=== PATIENT | male | born 1965 | race Caucasian/White ===

== ENCOUNTER 2019-10-01 20:17 | Inpatient (IN) | payer MEDICARE, MEDICAID ==
[~2019-10-01] VITALS: Ht 172.7 cm; Wt 84.1 kg
[~2019-10-01 20:17] MED LIST: CELE-193 PO; METH5TAB PO; ONDA8TAB6 PO; VAL2T PO
[2019-10-01] MEDS ORDERED: morphine 4 MG/ML inj SYRINge IM ONE (20:40)
[2019-10-01] MEDS ORDERED: ondansetron 4mg rapidly disintigrating tab PO ONE (20:40)
--- NOTE | 2019-10-01 20:42 | NUR ---
Pt. transported to CT by tech at this time.
[2019-10-01 20:58] LABS: BASOPHILS # (AUTO) 0.1 X10'3 (0-0.2); BASOPHILS % (AUTO) 0.8 % (0-1); EOSINOPHILS # (AUTO) 0.4 X10'3 (0-0.9); EOSINOPHILS % (AUTO) 4.3 % (0-6); HEMATOCRIT 41.8 % (42.0-52.0); HEMOGLOBIN 14.4 g/dl (14.0-17.9); LYMPHOCYTES # (AUTO) 1.5 X10'3 (1.1-4.8); LYMPHOCYTES % (AUTO) 17.4 % (21-51); MEAN CORPUSCULAR HEMOGLOBIN 32.4 PG (27.0-31.0); MEAN CORPUSCULAR HGB CONC 34.5 g/dL (33.0-36.5); MEAN CORPUSCULAR VOLUME 93.9 FL (78-98); MONOCYTES # (AUTO) 0.8 X10'3 (0-0.9); MONOCYTES % (AUTO) 9.4 % (2-12); NEUTROPHILS # (AUTO) 5.8 X10'3 (1.8-7.7); NEUTROPHILS % (AUTO) 68.1 % (42-75); PLATELET COUNT 204 X10'3 (140-440); RED BLOOD COUNT 4.45 X10'6 (4.70-6.10); RED CELL DISTRIBUTION WIDTH 13.1 % (11.5-14.5); WHITE BLOOD COUNT 8.5 X10'3 (4.5-11.0)
[2019-10-01] MEDS ORDERED: ondansetron/PF 4mg/2ml inj IV ONE (21:15)
[2019-10-01] MEDS ORDERED: normal saline 1000ML IV soln IVB ONE (21:15)
[2019-10-01] MEDS ORDERED: ceFOXitin 1 GM/D5W 50mL IVPB 50 ML IV ONE (21:15)
[2019-10-01 21:25] LABS: ALANINE AMINOTRANSFERASE 589 U/L (12-78); ALBUMIN 3.3 G/DL (3.4-5.0); ALKALINE PHOSPHATASE 468 IU/L (46-116); ANION GAP 9 (8-16); ASPARTATE AMINO TRANSFERASE 340 U/L (10-37); BILIRUBIN,TOTAL 5.3 MG/DL (0.1-1.0); BLOOD UREA NITROGEN 10 MG/DL (7-18); BUN/CREATININE RATIO 9.5 (5.4-32.0); CALCIUM 9.5 MG/DL (8.5-10.1); CHLORIDE 102 MMOL/L (99-107); CREATININE 1.05 MG/DL (0.60-1.10); GLUCOSE 117 MG/DL (70-104); LIPASE 172 U/L (73-393); POTASSIUM 3.7 MMOL/L (3.5-5.1); SODIUM 137 MMOL/L (135-145); TOTAL CARBON DIOXIDE 26.4 MMOL/L (24-32); eGFR 73 ML/MIN
[2019-10-01 21:27] LABS: ALBUMIN/GLOBULIN RATIO 0.7 (1.1-1.5); TOTAL PROTEIN 7.8 G/DL (6.4-8.2)
[2019-10-01] MEDS: morphine 4 MG/ML inj SYRINge IV PRN ×2 (21:33→21:58)
[2019-10-01 21:34] LABS: CLARITY,URINE CLEAR (Clear); COLOR,URINE AMBER (Yellow); GLUCOSE, URINE NEGATIVE (Neg); KETONES,URINE TRACE mg/dl (Neg); LEUKOCYTE ESTERASE ,URINE NEGATIVE (Neg); NITRITES, URINE NEGATIVE (Neg); OCCULT BLOOD,URINE SMALL (Neg); PROTEIN,URINE NEGATIVE (Neg)
[2019-10-01 21:46] LABS: UA COLLECTION TYPE VOIDED
[2019-10-01 21:49] LABS: URINE AMPHETAMINE SCREEN POSITIVE (Neg); URINE BARBITUATE SCREEN NEGATIVE (Neg); URINE BENZODIAZEPINES SCREEN NEGATIVE (Neg); URINE CANNABINOID SCREEN POSITIVE (Neg); URINE COCAINE SCREEN NEGATIVE (Neg); URINE METHADONE SCREEN POSITIVE (Neg); URINE OPIATE SCREEN NEGATIVE (Neg); URINE PHENCYCLIDINE SCREEN NEGATIVE (Neg)
[2019-10-01 21:51] LABS: BACTERIA,URINE NONE SEEN /HPF (Neg); MUCUS STRANDS FEW /LPF (Neg); RBC,URINE 0-2 /HPF (0-2); SQUAMOUS EPITHELIAL CELL,UR FEW /LPF (FEW); WBC,URINE 0-4 /HPF (0-4)
[2019-10-01] MEDS ORDERED: nicotine 21mg patch - 24 hr TD ONE (22:40)
[2019-10-02] MEDS ORDERED: potassium Cl 20 mEq SR tablet PO PRN ×2 (00:20)
[2019-10-02] MEDS ORDERED: magnesium 4gm in 100ml NS 100 ML IV PRN (00:20)
[2019-10-02] MEDS ORDERED: magnesium 2GM in 50ml NS 50 ML IV PRN (00:20)
[2019-10-02] MEDS ORDERED: potassium CL 10mEq/100ml bag 100 ML IV PRN ×2 (00:20)
[2019-10-02] MEDS ORDERED: ondansetron/PF 4mg/2ml inj IV PRN (00:20)
[2019-10-02] MEDS ORDERED: magnesium Cl slow-release 64mg tablet PO PRN (00:20)
[2019-10-02 00:41] LABS: ETHANOL < 0.010 GM/DL (0.0-0.010)
[2019-10-02] MEDS: normal saline 1000ml 1,000 ML IV SCH ×3 (00:57→20:50)
[2019-10-02] MEDS: morphine 2 MG/ML inj. syringe IV PRN ×5 (02:33→22:00)
[2019-10-02 02:48] VITALS: BP 151/73
[2019-10-02] MEDS ORDERED: IBUP-1986 PO (03:04)
--- NOTE | 2019-10-02 06:20 | NUR ---
Problems reprioritized. Patient report given, questions answered & plan of care reviewed with BENJA Shaw. Addendum: 10/02/19 at 0621 by Kary Womack RN Amended: Links added.
--- NOTE | 2019-10-02 06:20 | NUR ---
Problems reprioritized. Patient report given, questions answered & plan of care reviewed with BENJA Shaw. Addendum: 10/02/19 at 0620 by Kary Womack RN Amended: Links added.
[2019-10-02] MEDS: pantoprazole 40 MG vial IV SCH (07:19)
[2019-10-02] MEDS: metroNIDAZOLE-Flagyl 500mg/NS 100 ML IV SCH ×2 (07:19→15:21)
[2019-10-02] MEDS: K and/or MAG REPLACEMENT MC SCH (08:00)
[2019-10-02] MEDS: levoFLOXACIN-Levaquin 500mg/D5 100 ML IV SCH (09:20)
--- NOTE | 2019-10-02 10:20 | NUR ---
PAGER ID: [phone] MESSAGE: [id number] Echo needs a reason other than METH use. Valeria [phone]
[2019-10-02 11:00] VITALS: BP 166/95
[2019-10-02 14:16] LABS: BASOPHILS # (AUTO) 0.1 X10'3 (0-0.2); BASOPHILS % (AUTO) 0.9 % (0-1); EOSINOPHILS # (AUTO) 0.3 X10'3 (0-0.9); HEMATOCRIT 39.5 % (42.0-52.0); HEMOGLOBIN 13.3 g/dl (14.0-17.9); LYMPHOCYTES # (AUTO) 1.7 X10'3 (1.1-4.8); LYMPHOCYTES % (AUTO) 18.1 % (21-51); MEAN CORPUSCULAR HEMOGLOBIN 31.6 PG (27.0-31.0); MEAN CORPUSCULAR HGB CONC 33.6 g/dL (33.0-36.5); MEAN CORPUSCULAR VOLUME 94.1 FL (78-98); MEAN PLATELET VOLUME 9.4 FL (7.4-10.4); MONOCYTES # (AUTO) 0.9 X10'3 (0-0.9); MONOCYTES % (AUTO) 9.7 % (2-12); NEUTROPHILS # (AUTO) 6.3 X10'3 (1.8-7.7); NEUTROPHILS % (AUTO) 68.3 % (42-75); PLATELET COUNT 181 X10'3 (140-440); RED CELL DISTRIBUTION WIDTH 13.4 % (11.5-14.5); WHITE BLOOD COUNT 9.2 X10'3 (4.5-11.0)
[2019-10-02 14:30] LABS: ALANINE AMINOTRANSFERASE 413 U/L (12-78); ALBUMIN 2.9 G/DL (3.4-5.0); ALBUMIN/GLOBULIN RATIO 0.7 (1.1-1.5); ALKALINE PHOSPHATASE 419 IU/L (46-116); ANION GAP 7 (8-16); ASPARTATE AMINO TRANSFERASE 172 U/L (10-37); BILIRUBIN,TOTAL 1.4 MG/DL (0.1-1.0); BLOOD UREA NITROGEN 8 MG/DL (7-18); BUN/CREATININE RATIO 8.2 (5.4-32.0); CALCIUM 8.8 MG/DL (8.5-10.1); CHLORIDE 104 MMOL/L (99-107); CREATININE 0.98 MG/DL (0.60-1.10); GLUCOSE 76 MG/DL (70-104); POTASSIUM 4.1 MMOL/L (3.5-5.1); SODIUM 137 MMOL/L (135-145); TOTAL CARBON DIOXIDE 26.5 MMOL/L (24-32); TOTAL PROTEIN 7.2 G/DL (6.4-8.2); eGFR 79 ML/MIN
--- NOTE | 2019-10-02 18:49 | NUR ---
Patient in room [facility]. I have received report from BENJA Shaw and had the opportunity to ask questions and assume patient care.
[2019-10-02 19:53] VITALS: BP 125/72
[2019-10-03] VITALS: BP 133/72
[2019-10-03] MEDS: metroNIDAZOLE-Flagyl 500mg/NS 100 ML IV SCH ×2 (00:13→07:54)
[2019-10-03] MEDS: morphine 2 MG/ML inj. syringe IV PRN ×2 (03:04→07:55)
[2019-10-03 04:59] LABS: BASOPHILS # (AUTO) 0.1 X10'3 (0-0.2); BASOPHILS % (AUTO) 0.9 % (0-1); EOSINOPHILS # (AUTO) 0.2 X10'3 (0-0.9); EOSINOPHILS % (AUTO) 2.1 % (0-6); HEMATOCRIT 36.2 % (42.0-52.0); HEMOGLOBIN 12.3 g/dl (14.0-17.9); LYMPHOCYTES # (AUTO) 1.7 X10'3 (1.1-4.8); LYMPHOCYTES % (AUTO) 18.3 % (21-51); MEAN CORPUSCULAR VOLUME 94.2 FL (78-98); MEAN PLATELET VOLUME 9.3 FL (7.4-10.4); MONOCYTES # (AUTO) 0.9 X10'3 (0-0.9); MONOCYTES % (AUTO) 9.7 % (2-12); NEUTROPHILS # (AUTO) 6.5 X10'3 (1.8-7.7); PLATELET COUNT 171 X10'3 (140-440); RED BLOOD COUNT 3.85 X10'6 (4.70-6.10); RED CELL DISTRIBUTION WIDTH 13.3 % (11.5-14.5); WHITE BLOOD COUNT 9.4 X10'3 (4.5-11.0)
[2019-10-03 05:20] LABS: ALANINE AMINOTRANSFERASE 292 U/L (12-78); ALBUMIN 2.7 G/DL (3.4-5.0); ALBUMIN/GLOBULIN RATIO 0.7 (1.1-1.5); ALKALINE PHOSPHATASE 353 IU/L (46-116); ANION GAP 9 (8-16); ASPARTATE AMINO TRANSFERASE 89 U/L (10-37); BLOOD UREA NITROGEN 11 MG/DL (7-18); BUN/CREATININE RATIO 13.8 (5.4-32.0); CALCIUM 8.7 MG/DL (8.5-10.1); CHLORIDE 104 MMOL/L (99-107); GLUCOSE 79 MG/DL (70-104); MAGNESIUM 1.7 MG/DL (1.5-2.4); POTASSIUM 3.8 MMOL/L (3.5-5.1); SODIUM 137 MMOL/L (135-145); TOTAL CARBON DIOXIDE 23.9 MMOL/L (24-32); TOTAL PROTEIN 6.6 G/DL (6.4-8.2); eGFR > 90 ML/MIN
--- NOTE | 2019-10-03 06:07 | NUR ---
Nanci Brandon sister called. Pt okayed us to speak with her and information added to SB[facility]. Sister would like to be notified should patient be going to surgery today. Will notify daytime RN.
[2019-10-03] MEDS: normal saline 1000ml 1,000 ML IV SCH (06:19)
--- NOTE | 2019-10-03 06:30 | NUR ---
Problems reprioritized. Patient report given, questions answered & plan of care reviewed with Valeria YOUSIF.
[2019-10-03 07:39] VITALS: BP 121/62
[2019-10-03] MEDS: pantoprazole 40 MG vial IV SCH (07:54)
[2019-10-03] MEDS: K and/or MAG REPLACEMENT MC SCH (08:00)
[2019-10-03] MEDS ORDERED: nicotine 21mg patch - 24 hr TD SCH (08:00)
[2019-10-03] MEDS: levoFLOXACIN-Levaquin 500mg/D5 100 ML IV SCH (10:39)
[2019-10-03 11:21] VITALS: BP 155/91
--- NOTE | 2019-10-03 11:54 | NUR ---
Patient provided Apple juice x2 and yogurt x2.
--- NOTE | 2019-10-03 12:54 | NUR ---
Dr. Holbrook rounded on pt. Pt stated he was tolerating Clear Liquids today, and denies pain at this time. Pt asked to be DC'd d/t an MD appt in [place] 10/04 w/ pain mgmt doctor that, "I've waited a month and a half to get in". Dr. Holbrook stated OK for pt to be discharged today per requests, and f/u in office next chas for possible surgery. Dr. Holbrook instructed pt to keep on a grease/fat free diet until surgery, but to rtn to ER/MD office with any worsening symptoms. Primary RN, Valeria, notified.
[2019-10-03] MEDS ORDERED: LEVO500T2 PO (13:29)
[2019-10-03] MEDS ORDERED: METR500T PO (13:29)
--- NOTE | 2019-10-03 14:55 | NUR ---
Patient discharged home. He will follow up with Dr. Holbrook, phone number to his off and address was provided to patient. No abx ordered. Patient will use Ibuprofen for pain management at home. Patient educated on the need to follow up with Dr. Jimenez and acknowledges verbally that he will. Patient has a pain management appointment tomorrow that he needs to attend, he has been waiting for the appointment for many weeks now. Patient walked out on his own, refused assistance. All belongings taken with patient.
== END 2019-10-03 14:53 | disposition home or self-care (01) | DRG 446 ==
LOC: ER 20:17 → ED HOLD 10-02 00:46 → SUR 3N 10-02 02:26
PROVIDERS: ADMIT Internal Medicine; ATTEND Internal Medicine
DX: K80.00 Calculus of gallbladder with acute cholecystitis without obstruction (principal); R79.89 Other specified abnormal findings of blood chemistry; F11.90 Opioid use, unspecified, uncomplicated; F12.90 Cannabis use, unspecified, uncomplicated; F17.210 Nicotine dependence, cigarettes, uncomplicated; M06.9 Rheumatoid arthritis, unspecified; Z96.641 Presence of right artificial hip joint; Z96.653 Presence of artificial knee joint, bilateral; Z88.8 Allergy status to other drugs, medicaments and biological substances; Z88.2 Allergy status to sulfonamides; Z90.49 Acquired absence of other specified parts of digestive tract
CPT/HCPCS: 36415; 74176; 74181; 76700; 80053; 80305; 80320; 81001; 83690; 83735; 85025; 85610; 87081; 93005; 93306; 96365; 96372; 96375; 99285; C9113; G0378; J0694; J1956; J2270; J2405; J3490; J7030

== ENCOUNTER 2022-03-11 09:34 | Day surgery (SDC) | payer OTHER, MEDICAID ==
[~2022-03-11] VITALS: Ht 172.7 cm; Wt 109.8 kg
[~2022-03-11 09:34] MED LIST changes: -CELE-193 PO; +HYDR-3965 PO; +IBUP-1986 PO; -METH5TAB PO; -ONDA8TAB6 PO; -VAL2T PO
[2022-03-11 09:48] VITALS: BP 133/79
[2022-03-11] MEDS ORDERED: HYDR-3964 PO (09:55)
[2022-03-11] MEDS ORDERED: iohexol 300 MG/1 ML 50ml polymer ONE (09:58)
[2022-03-11 10:53] VITALS: BP 113/66
== END 2022-03-11 10:53 | disposition home or self-care (01) ==
LOC: SSTAY O 09:34
PROVIDERS: ATTEND Surgery
DX: Z46.59 Encounter for fitting and adjustment of other gastrointestinal appliance and device (principal); K80.50 Calculus of bile duct without cholangitis or cholecystitis without obstruction; Z90.49 Acquired absence of other specified parts of digestive tract; Z88.5 Allergy status to narcotic agent; Z88.2 Allergy status to sulfonamides; Z88.8 Allergy status to other drugs, medicaments and biological substances; Z88.1 Allergy status to other antibiotic agents
CPT/HCPCS: 47531; Q9967